=== PATIENT | male | born 1955 | race African-American/Black ===

== ENCOUNTER 2017-02-08 15:01 | Inpatient (IN) | payer OTHER ==
[2017-02-08 16:57] VITALS: BMI 27.7
--- NOTE | 2017-02-08 18:59 | HP ---
COWS - Scale Resting Pulse: 1= [place] 81-100 Sweatin= Chills/Flushing Restless Observation: 1= Difficult to Sit Still Pupil Size: 0= Normal to Room Light Bone or Joint Aches: 2= Severe Diffuse Aches Runny Nose/ Eye Tearin= Runny Nose/Eyes GI Upset > 30mins: 3= Vomiting/Diarrhea Tremor Observation: 2= Slight Tremor Visible Yawning Observation: 0= None Anxiety or Irritability: 2=Irritable/Anxious Goose Flesh Skin: 0=Smooth Skin COWS Score: 14 CIWA Score - CIWA Score Nausea/Vomitin-Mild Nausea/No Vomiting Muscle Tremors: 4-Moderate,w/Arms Extend Anxiety: 4-Mod. Anxious/Guarded Agitation: 4-Moderately Restless Paroxysmal Sweats: 1-Minimal Palms Moist Orientation: 1-Uncertain about Date Tacttile Disturbances: 0-None Auditory Disturbances: 0-None Visual Disturbances: 0-None Headache: 1-Very Mild CIWA-Ar Total Score: 16 Admission ROS BHS - HPI Chief Complaint: WITHDRAWAL SX Allergies/Adverse Reactions: Allergies Allergy/AdvReac Type Severity Reaction Status Date / Time No Known Allergies Allergy Verified 02/08/17 17:40 History of Present Illness: 51 YEARS OLD MALE WITH LONG HISTORY OF ALCOHOL, OPIATE, NICOTINE DEPENDENCE, HAS BOTH KNEES TRAUMA X 5 YEARS AGO, HYPERTENSION, AMBULATE WITH WALKER AND DEPRESSION IS ADMITTED TO DETOX Exam Limitations: No Limitations - Ebola screening Have you traveled outside of the country in the last 21 days: No Have you had contact with anyone from an Ebola affected area: No Have you been sick,other than usual withdrawal symptoms: No Do you have a fever: No - Review of Systems Constitutional: Changes in sleep, Weight Stable EENT: reports: Dental Problems (LOWER TEETH MISSING) Respiratory: reports: SOB with Exertion Cardiac: reports: No Symptoms Reported GI: reports: Nausea, Poor Fluid Intake, Abdominal cramping : reports: No Symptoms Reported Musculoskeletal: reports: Back Pain, Joint Pain (CHRONIC KNEES PAIN), Muscle Pain, Neck Pain Integumentary: reports: Change in Color (BOTH HANDS) Neuro: reports: Tremors Endocrine: reports: No Symptoms Reported Hematology: reports: No Symptoms Reported Psychiatric: reports: Judgement Intact, Depressed Other Systems: Reviewed and Negative Patient History - Patient Medical History Hx Anemia: No Hx Asthma: No Hx Chronic Obstructive Pulmonary Disease (COPD): No Hx Cancer: No Hx Cardiac Disorders: No Hx Congestive Heart Failure: No Hx Hypertension: Yes Hx Hypercholesterolemia: No Hx Pacemaker: No HX Cerebrovascular Accident: No Hx Seizures: No Hx Dementia: No Hx Diabetes: No Hx Gastrointestinal Disorders: No Hx Liver Disease: No Hx Genitourinary Disorders: No Hx Sexually Transmitted Disorders: No Hx Renal Disease (ESRD): No Hx Thyroid Disease: No Hx Human Immunodeficiency Virus (HIV): No Hx Hepatitis C: No Hx Depression: Yes Hx Suicide Attempt: Yes (AGE 46 OVERDOSE HANGSELF) Hx Bipolar Disorder: No Hx Schizophrenia: No - Patient Surgical History Past Surgical History: Yes Hx Neurologic Surgery: No Hx Cataract Extraction: No Hx Cardiac Surgery: No Hx Lung Surgery: No Hx Breast Surgery: No Hx Breast Biopsy: No Hx Abdominal Surgery: No Hx Appendectomy: No Hx Cholecystectomy: No Hx Genitourinary Surgery: No Hx Orthopedic Surgery: Yes (2013 BOTH KNEES ) Anesthesia Reaction: No - PPD History Previous Implant?: Yes Documented Results: Negative w/o proof Implanted On Prior [facility] Admission?: No PPD to be Administered?: Yes - Smoking Cessation Smoking history: Current every day smoker Have you smoked in the past 12 months: Yes Aproximately how many cigarettes per day: 5 Cigars Per Day: 0 Hx Chewing Tobacco Use: No Initiated information on smoking cessation: Yes 'Breaking Loose' booklet given: 02/08/17 - Substance & Tx. History Hx Alcohol Use: Yes Hx Substance Use: Yes Substance Use Type: Alcohol, Opiates Hx Substance Use Treatment: Yes (2014 ) - Substances Abused Heroin Route: Injection Frequency: Daily Amount used: 13 bags Age of first use: 25 Date of Last Use: 02/08/17 Alcohol Route: Oral Frequency: Daily Amount used: ISHA 1/2 PINT Age of first use: 11 Date of Last Use: 02/08/17 Family Disease History - Family Disease History Family Disease History: Heart Disease: Father (), Brother, Other: Father , Mother (/) Admission Physical Exam BHS - Vital Signs Vital Signs: Vital Signs - 24 hr 02/08/17 16:55 Temperature 98.1 F Pulse Rate 98 H Respiratory 18 Rate Blood Pressure 150/100 - Physical General Appearance: Yes: Appropriately Dressed, Mild Distress, Alcohol on Breath , Tremorous, Irritable, Sweating, Anxious HEENTM: Yes: Hearing grossly Normal, Normal ENT Inspection, Normocephalic, Normal Voice Respiratory: Yes: Chest Non-Tender, Lungs Clear, Normal Breath Sounds, No Respiratory Distress, No Accessory Muscle Use Neck: Yes: Supple, Trachea in good position Breast: Yes: Breasts Symetrical Cardiology: Yes: Regular Rhythm, S1, S2, Tachycardia Abdominal: Yes: Non Tender, Soft, Increased Bowel Sounds Genitourinary: Yes: Within Normal Limits Back: Yes: Normal Inspection Musculoskeletal: Yes: Gait Steady (WALKER), Back pain, Joint swelling (KNEES), Muscle Pain (BOTH KNEES) Extremities: Yes: Non-Tender, Tremors, Other (KNEES SCAR TISSUES) Neurological: Yes: Alert, Normal Response, Depressed Affect Integumentary: Yes: Warm Lymphatic: Yes: Within Normal Limits - Diagnostic (1) Alcohol dependence with uncomplicated withdrawal Current Visit: Yes Status: Acute (2) Opioid dependence with withdrawal Current Visit: Yes Status: Acute (3) Chronic pain of both knees Current Visit: Yes Status: Chronic (4) Hypertension Current Visit: Yes Status: Chronic Qualifiers: Hypertension type: essential hypertension Qualified Code(s): I10 - Essential (primary) hypertension (5) Hepatitis C carrier Current Visit: Yes Status: Chronic (6) Walker as ambulation aid Current Visit: Yes Status: Chronic (7) Depression (emotion) Current Visit: Yes Status: Suspected Qualifiers: Depression Type: dysthymia Qualified Code(s): F34.1 - Dysthymic disorder Cleared for Admission [facility] - Detox or Rehab [facility] Level of Care: Medically Managed Detox Regimen/Protocol: Methadone/Librium [facility] Breath Alcohol Content Breath Alcohol Content: 0.046 Urine Drug Screen - Results Drug Screen Negative: No Urine Drug Screen Results: OPI-Opiates, BZO-Benzodiazepines, MTD-Methadone
[2017-02-08] MEDS ORDERED: P-EPHED 60MG/TRIPROLIDI 2.5MG TABLET PO PRN (19:09)
[2017-02-08] MEDS ORDERED: MAGNESIUM HYDROX 2400MG/30ML ORAL SUSPENSION 30 ML CUP PO PRN (19:09)
[2017-02-08] MEDS ORDERED: LOPERAMIDE HCL 2 MG CAPSULE PO PRN (19:09)
[2017-02-08] MEDS ORDERED: METHADONE HCL 10 MG TABLET (FOR DETOX USE ONLY) PO ONE ×2 (19:09→23:00)
[2017-02-08] MEDS ORDERED: guaiFENesin/D-METHORPHAN HB 10 ML UNIT-DOSE CUPS PO PRN (19:09)
[2017-02-08] MEDS ORDERED: diphenhydrAMINE HCL 50 MG CAPSULE PO PRN (19:09)
[2017-02-08] MEDS ORDERED: MENTHOL/PHENOL 1 EACH UD MM PRN (19:09)
[2017-02-08] MEDS ORDERED: IBUPROFEN 400 MG TABLET (FP) PO PRN (19:09)
[2017-02-08] MEDS ORDERED: MAG HYDROX/AL HYDROX/SIMETH 30 ML UNIT-DOSE CUP PO PRN (19:09)
[2017-02-08] MEDS ORDERED: MAGNESIUM CITRATE 300 ML BOTTLE PO PRN (19:09)
[2017-02-08] MEDS ORDERED: NICOTINE POLACRILEX 2 MG GUM BUC PRN (19:09)
[2017-02-08] MEDS ORDERED: ACETAMINOPHEN 325 MG TABLET (FP) PO PRN (19:09)
[2017-02-08] MEDS ORDERED: chlordiazePOXIDE HCL 25 MG CAPSULE PO PRN (19:09)
[2017-02-08] MEDS ORDERED: COLLOIDAL OATMEAL 1 BAR EACH TP PRN (19:15)
[2017-02-08] MEDS: amLODIPine BESYLATE 5 MG TABLET (FP) PO SCH (19:50)
[2017-02-08] MEDS: chlordiazePOXIDE HCL 25 MG CAPSULE PO SCH (22:08)
[2017-02-08] MEDS: THIAMINE HCL 100 MG TABLET (FP) PO SCH (22:08)
[2017-02-08] MEDS: MINERAL OIL/PETROLAT/WATER TOPICAL CREAM 113 GM JAR TP SCH (22:11)
[2017-02-09 00:36] LABS: URINE APPEARANCE CLEAR; URINE BILIRUBIN NEGATIVE (NEGATIVE); URINE BLOOD NEGATIVE (NEGATIVE); URINE COLOR LTYELLOW; URINE GLUCOSE (UA) NEGATIVE (NEGATIVE); URINE KETONE NEGATIVE (NEGATIVE); URINE LEUK ESTERASE NEGATIVE (NEGATIVE); URINE NITRITE NEGATIVE (NEGATIVE); URINE PROTEIN NEGATIVE (NEGATIVE); URINE UROBILINOGEN NEGATIVE mg/dL (0.2-1.0)
[2017-02-09] MEDS: chlordiazePOXIDE HCL 25 MG CAPSULE PO SCH ×4 (05:39→22:07)
[2017-02-09 09:56] LABS: MCHC 32.9 g/dl (32.0-35.9); MEAN CELL VOLUME 100.4 fl (80-96); MEAN PLT VOLUME 9.6 fl (7.5-11.1); PLATELET COUNT 202 K/MM3 (134-434); WHITE BLOOD COUNT 3.2 K/mm3 (4.0-10.0)
[2017-02-09] MEDS ORDERED: METHADONE HCL 10 MG TABLET (FOR DETOX USE ONLY) PO SCH (10:00)
[2017-02-09] MEDS: amLODIPine BESYLATE 5 MG TABLET (FP) PO SCH (10:05)
[2017-02-09] MEDS: PRENATAL VITAMINS W/ FOLIC ACID TABLET (FP) PO SCH (10:05)
--- NOTE | 2017-02-09 10:05 | CONSULT ---
[facility] Psychiatric Consult - Data Date of interview: 02/09/17 Admission source: [facility] Identifying data: This is 61 years old AA divorce male resides in retirement, supported by [facility]. Substance Abuse History: Reports drinking since 11 years old 1/2 pint of solis daily,Heroin IV since 25 yo 13 bags daily. Medical History: HTN,Hep C,Chronic arthritis (ambulating with cane). Psychiatric History: Reports first contact with psychiatrist at the age of 30 when he was admitted to the hospital due to severe depression,suicidal thoughts.Patient was dx with Bipolkar disorder,placed in medications.he reports a few more psychiatric hospitalizations,not recently.Patient was on different meds including Depakote,Prozac,Risperidone,Seroquel.He stopped medications about 6 years ago anf reports feeling better with no psychotropic medications.Patient is not willing to restart meds at this time,reports feels fine,not depressed at present. Physical/Sexual Abuse/Trauma History: denies Mental Status Exam - Mental Status Exam Alert and Oriented to: Time, Place, Person Cognitive Function: Grossly Intact Patient Appearance: Unkempt Mood: Sad Affect: Appropriate, Mood Congruent Patient Behavior: Cooperative Speech Pattern: Clear Voice Loudness: Normal Thought Process: Goal Oriented Thought Disorder: Not Present Hallucinations: Denies Suicidal Ideation: Denies Homicidal Ideation: Denies Insight/Judgement: Fair Sleep: Fair Appetite: Fair Muscle strength/Tone: Normal Gait/Station: Normal Psychiatric Findings - Problem List ([place] 1, 2,3) (1) Alcohol dependence with uncomplicated withdrawal Current Visit: No Status: Acute (2) Opioid dependence with withdrawal Current Visit: Yes Status: Chronic (3) Chronic pain of both knees Current Visit: Yes Status: Chronic (4) Hepatitis C carrier Current Visit: Yes Status: Chronic (5) Hypertension Current Visit: Yes Status: Chronic Qualifiers: Hypertension type: essential hypertension Qualified Code(s): I10 - Essential (primary) hypertension (6) Walker as ambulation aid Current Visit: Yes Status: Chronic (7) Depression (emotion) Current Visit: Yes Status: Suspected Qualifiers: Depression Type: dysthymia Qualified Code(s): F34.1 - Dysthymic disorder - Initial Treatment Plan Initial Treatment Plan: Will monitor progress,consider psychotropics if needed.
[2017-02-09] MEDS: NICOTINE 14 MG/24 HOURS TOPICAL PATCH TD SCH (10:06)
[2017-02-09 10:15] LABS: ALBUMIN 3.3 g/dl (3.4-5.0); ALK PHOS 354 U/L (45-117); ANION GAP 6 (8-16); BILIRUBIN,TOTAL 0.8 mg/dL (0.2-1.0); CALCIUM 9.6 mg/dL (8.5-10.1); CO2 25 mmol/L (21-32); CREATININE 1.1 mg/dL (0.7-1.3); GLUCOSE,RANDOM 92 mg/dL (74-106); SGOT/AST 55 U/L (15-37); SGPT/ALT 44 U/L (12-78); TOT PROT 7.2 g/dl (6.4-8.2)
--- NOTE | 2017-02-09 11:14 | PN ---
[facility] CIWA - CIWA Score Nausea/Vomitin Muscle Tremors: 4-Moderate,w/Arms Extend Anxiety: 2 Agitation: 3 Paroxysmal Sweats: No Perspiration Orientation: 2-Disoriented Date<2 days Tacttile Disturbances: 0-None Auditory Disturbances: 2-Mild Harshness/Frighten Visual Disturbances: 0-None Headache: 0-None Present CIWA-Ar Total Score: 18 BHS COWS - Scale Resting Pulse: 0= [place] 80 or Below Sweatin= Chills/Flushing Restless Observation: 0= Sits Still Pupil Size: 0= Normal to Room Light Bone or Joint Aches: 2= Severe Diffuse Aches Runny Nose/ Eye Tearin= Runny Nose/Eyes GI Upset > 30mins: 2= Nausea/Diarrhea Tremor Observation of Outstretched Hands: 2= Slight Tremor Visible Yawning Observation: 1= 1-2x During Session Anxiety or Irritability: 2=Irritable/Anxious Goose Flesh Skin: 3=Piloerection COWS Score: 15 [facility] Progress Note (SOAP) Subjective: Vomiting, Stomach Cramping, H/A, Diarrhea, Tremors, Body Aches, Sweating. Objective: PT. A & O X 2 (DISORIENTED ABOUT DAY / DATE). NO ACUTE DISTRESS. PT. DENIES CHEST PAIN. 02/09/17 11:12 Vital Signs Temperature 97.6 F 02/09/17 06:27 Pulse Rate 59 L 02/09/17 07:37 Respiratory Rate 18 02/09/17 06:27 Blood Pressure 173/97 02/09/17 07:37 O2 Sat by Pulse Oximetry (%) Laboratory Tests 02/08/17 02/09/17 02/09/17 21:25 07:50 07:50 WBC 3.2 L RBC 3.41 L Hgb 11.3 L Hct 34.2 L MCV 100.4 H MCH 33.0 MCHC 32.9 RDW 13.0 Plt Count 202 MPV 9.6 Sodium 140 Potassium 4.3 Chloride 109 H Carbon Dioxide 25 Anion Gap 6 L BUN 35 H Creatinine 1.1 Creat Clearance w eGFR > 60 Random Glucose 92 Calcium 9.6 Total Bilirubin 0.8 AST 55 H ALT 44 Alkaline Phosphatase 354 H Total Protein 7.2 Albumin 3.3 L Urine Color Ltyellow Urine Appearance Clear Urine pH 5.0 Ur Specific [place] <= 1.005 Urine Protein Negative Urine Glucose (UA) Negative Urine Ketones Negative Urine Blood Negative Urine Nitrite Negative Urine Bilirubin Negative Urine Urobilinogen Negative LABS NOTED. RPR RESULT PENDING. 02/09/17 11:16 02/09/17 11:17 Assessment: 02/09/17 11:13 WITHDRAWAL SYMPTOMS. DEHYDRATION. 02/09/17 11:17 Plan: CONTINUED DETOX. REPEAT CMP ON 02/11/2017 FOR ABNORMAL ADMISSION VALUES. D/C MAGNESIUM-CONTAINING MEDS. INCREASE DAILY PO FLUID INTAKE.
[2017-02-09] MEDS: FERROUS SO4 325 MG TABLET (FP) PO SCH (18:41)
[2017-02-09] MEDS: THIAMINE HCL 100 MG TABLET (FP) PO SCH (22:07)
[2017-02-09] MEDS: MINERAL OIL/PETROLAT/WATER TOPICAL CREAM 113 GM JAR TP SCH (22:31)
[2017-02-10] MEDS: chlordiazePOXIDE HCL 25 MG CAPSULE PO SCH ×3 (05:59→17:47)
[2017-02-10] MEDS ORDERED: METHADONE HCL 5 MG TABLET (FOR DETOX USE ONLY) PO SCH (10:00)
[2017-02-10] MEDS: NICOTINE 14 MG/24 HOURS TOPICAL PATCH TD SCH (10:20)
[2017-02-10] MEDS: amLODIPine BESYLATE 5 MG TABLET (FP) PO SCH (10:20)
[2017-02-10] MEDS: PRENATAL VITAMINS W/ FOLIC ACID TABLET (FP) PO SCH (10:20)
[2017-02-10] MEDS: FERROUS SO4 325 MG TABLET (FP) PO SCH ×2 (10:20→17:46)
[2017-02-10] MEDS ORDERED: amLODIPine BESYLATE 5 MG TABLET (FP) PO ONE (15:12)
--- NOTE | 2017-02-10 15:14 | PN ---
[facility] CIWA - CIWA Score Nausea/Vomitin-No Nausea/No Vomiting Muscle Tremors: None Anxiety: 4-Mod. Anxious/Guarded Agitation: 3 Paroxysmal Sweats: 3 Orientation: 0-Oriented Tacttile Disturbances: 3-Moderate Itch/Numb/Burn Auditory Disturbances: 2-Mild Harshness/Frighten Visual Disturbances: 0-None Headache: 0-None Present CIWA-Ar Total Score: 15 BHS COWS - Scale Resting Pulse: 2= [place] 101-120 Sweatin= Chills/Flushing Restless Observation: 1= Difficult to Sit Still Pupil Size: 0= Normal to Room Light Bone or Joint Aches: 2= Severe Diffuse Aches Runny Nose/ Eye Tearin= Nasal Congestion GI Upset > 30mins: 1= Stomach Cramp Tremor Observation of Outstretched Hands: 0= None Yawning Observation: 1= 1-2x During Session Anxiety or Irritability: 2=Irritable/Anxious Goose Flesh Skin: 3=Piloerection COWS Score: 14 S Progress Note (SOAP) Subjective: Interrupted sleep, Body Aches, Sweating. Objective: PT. A & O X 3, OBSERVED AMBULATING ON UNIT WITH ASSISTANCE OF A WALKER. NO ACUTE DISTRESS. PT. DENIES CHEST PAIN. 02/10/17 15:10 Vital Signs Temperature 97.1 F L 02/10/17 10:33 Pulse Rate 107 H 02/10/17 10:33 Respiratory Rate 18 02/10/17 10:33 Blood Pressure 147/93 02/10/17 10:33 O2 Sat by Pulse Oximetry (%) Laboratory Tests 02/08/17 02/09/17 02/09/17 21:25 07:50 07:50 WBC 3.2 L RBC 3.41 L Hgb 11.3 L Hct 34.2 L MCV 100.4 H MCH 33.0 MCHC 32.9 RDW 13.0 Plt Count 202 MPV 9.6 Sodium 140 Potassium 4.3 Chloride 109 H Carbon Dioxide 25 Anion Gap 6 L BUN 35 H Creatinine 1.1 Creat Clearance w eGFR > 60 Random Glucose 92 Calcium 9.6 Total Bilirubin 0.8 AST 55 H ALT 44 Alkaline Phosphatase 354 H Total Protein 7.2 Albumin 3.3 L Urine Color Ltyellow Urine Appearance Clear Urine pH 5.0 Ur Specific [place] <= 1.005 Urine Protein Negative Urine Glucose (UA) Negative Urine Ketones Negative Urine Blood Negative Urine Nitrite Negative Urine Bilirubin Negative Urine Urobilinogen Negative RPR Titer 02/09/17 07:50 WBC RBC Hgb Hct MCV MCH MCHC RDW Plt Count MPV Sodium Potassium Chloride Carbon Dioxide Anion Gap BUN Creatinine Creat Clearance w eGFR Random Glucose Calcium Total Bilirubin AST ALT Alkaline Phosphatase Total Protein Albumin Urine Color Urine Appearance Urine pH Ur Specific [place] Urine Protein Urine Glucose (UA) Urine Ketones Urine Blood Urine Nitrite Urine Bilirubin Urine Urobilinogen RPR Titer Nonreactive LABS NOTED. Assessment: 02/10/17 15:14 WITHDRAWAL SYMPTOMS. HYPERTENSION. Plan: CONTINUE DETOX. AMLODIPINE, 5 MG PO X 1 NOW. INCREASE AMLODIPINE DOSE TO 10 MG PO DAILY STARTING TOMORROW (02/11/2017). INCREASE DAILY PO FLUID INTAKE.
[2017-02-10] MEDS ORDERED: IBUPROFEN 400 MG TABLET (FP) PO PRN (18:54)
[2017-02-10] MEDS ORDERED: PT OWN MED DRAWER 7, Y5N ONE (21:11)
[2017-02-10] MEDS: chlordiazePOXIDE 5 MG CAPSULE PO SCH (23:03)
[2017-02-10] MEDS: MINERAL OIL/PETROLAT/WATER TOPICAL CREAM 113 GM JAR TP SCH (23:03)
[2017-02-10] MEDS: THIAMINE HCL 100 MG TABLET (FP) PO SCH (23:04)
[2017-02-11] MEDS: chlordiazePOXIDE 5 MG CAPSULE PO SCH (05:45)
[2017-02-11 07:13] VITALS: BP 155/98; PULSE 90; TEMP 97.1
[2017-02-11] MEDS ORDERED: amLODIPine BESYLATE 10 MG TABLET (FP) PO SCH (10:00)
--- NOTE | 2017-02-11 14:31 | DS ---
[facility] Detox Discharge Summary Admission Date: 02/08/17 Discharge Date: 02/11/17 - History Present History: Alcohol Dependence, Opioid Dependence Additional Comments: Noted with azotemia: encouraged to drink lots of water Patient instructed to follow up with his PCP within 1 week for all medical problems/concerns Pertinent Past History: HTN Anemia - Physical Exam Results Vital Signs: Vital Signs Temperature 97.1 F L 02/11/17 06:00 Pulse Rate 90 02/11/17 06:00 Respiratory Rate 18 02/11/17 06:00 Blood Pressure 155/98 02/11/17 06:00 O2 Sat by Pulse Oximetry (%) Pertinent Admission Physical Exam Findings: Withdrawal symptoms Laboratory Tests 02/08/17 02/09/17 02/09/17 21:25 07:50 07:50 WBC 3.2 L RBC 3.41 L Hgb 11.3 L Hct 34.2 L MCV 100.4 H MCH 33.0 MCHC 32.9 RDW 13.0 Plt Count 202 MPV 9.6 Sodium 140 Potassium 4.3 Chloride 109 H Carbon Dioxide 25 Anion Gap 6 L BUN 35 H Creatinine 1.1 Creat Clearance w eGFR > 60 Random Glucose 92 Calcium 9.6 Total Bilirubin 0.8 AST 55 H ALT 44 Alkaline Phosphatase 354 H Total Protein 7.2 Albumin 3.3 L Urine Color Ltyellow Urine Appearance Clear Urine pH 5.0 Ur Specific [place] <= 1.005 Urine Protein Negative Urine Glucose (UA) Negative Urine Ketones Negative Urine Blood Negative Urine Nitrite Negative Urine Bilirubin Negative Urine Urobilinogen Negative RPR Titer 02/09/17 07:50 WBC RBC Hgb Hct MCV MCH MCHC RDW Plt Count MPV Sodium Potassium Chloride Carbon Dioxide Anion Gap BUN Creatinine Creat Clearance w eGFR Random Glucose Calcium Total Bilirubin AST ALT Alkaline Phosphatase Total Protein Albumin Urine Color Urine Appearance Urine pH Ur Specific [place] Urine Protein Urine Glucose (UA) Urine Ketones Urine Blood Urine Nitrite Urine Bilirubin Urine Urobilinogen RPR Titer Nonreactive Labs noted: BUN 35 - Medication Discharge Medications: Ambulatory Orders Unobtainable [Unobtainable] 02/08/17 - Diagnosis (1) Hypertension Status: Chronic Qualifiers: Hypertension type: essential hypertension Qualified Code(s): I10 - Essential (primary) hypertension (2) Opioid dependence with withdrawal Status: Acute (3) Depression (emotion) Status: Chronic Qualifiers: Depression Type: dysthymia Qualified Code(s): F34.1 - Dysthymic disorder (4) Alcohol dependence with uncomplicated withdrawal Status: Acute (5) Nicotine dependence Status: Chronic (6) Anemia Status: Chronic (7) Azotemia Status: Acute - AMA Did Patient Leave Against Medical Advice: No (Administratively discharged due to aggressiveness and increased agitation. )
[2017-02-11] MEDS ORDERED: chlordiazePOXIDE HCL 10 MG CAPSULE PO SCH (23:00)
[2017-02-12] MEDS ORDERED: METHADONE HCL 10 MG TABLET (FOR DETOX USE ONLY) PO SCH (10:00)
--- NOTE | 2017-02-12 17:04 | EKG ---
Test Reason : Blood Pressure : / mmHG Vent. Rate : 073 BPM Atrial Rate : 073 BPM P-R Int : 160 ms QRS Dur : 084 ms QT Int : 416 ms P-R-T Axes : 057 031 025 degrees QTc Int : 458 ms NORMAL SINUS RHYTHM VOLTAGE CRITERIA FOR LEFT VENTRICULAR HYPERTROPHY ABNORMAL ECG NO PREVIOUS ECGS AVAILABLE Confirmed by ALISSA ROBERTS MD ([id number]) on 02/12/2017 5:04:28 PM Referred By: Confirmed By:ALISSA ROBERTS MD
[2017-02-13] MEDS ORDERED: METHADONE HCL 5 MG TABLET (FOR DETOX USE ONLY) PO SCH (06:00)
== END 2017-02-11 08:43 | disposition left against medical advice (07) | DRG 894 ==
LOC: YASAS 15:01 → Y3N 18:45
PROVIDERS: ADMIT Internal Medicine; ATTEND Internal Medicine
PROC: HZ2ZZZZ Detoxification Services for Substance Abuse Treatment (ICD-10-PCS; principal; 2017-02-08)
DX: F11.23 Opioid dependence with withdrawal (principal); F10.230 Alcohol dependence with withdrawal, uncomplicated; F17.210 Nicotine dependence, cigarettes, uncomplicated; F34.1 Dysthymic disorder; B18.2 Chronic viral hepatitis C; I10 Essential (primary) hypertension; R79.89 Other specified abnormal findings of blood chemistry; M25.561 Pain in right knee; M25.562 Pain in left knee; R26.89 Other abnormalities of gait and mobility; Z99.89 Dependence on other enabling machines and devices
CPT/HCPCS: 36415; 80053; 81003; 85027; 86593; 93005; 93010

== ENCOUNTER 2024-05-27 13:22 | Inpatient (IN) | payer OTHER ==
[2024-05-27 14:57] VITALS: BMI 29.5
[2024-05-27] MEDS ORDERED: guaiFENesin 600 MG TABLET.ER (FP) PO PRN (16:25)
[2024-05-27] MEDS ORDERED: POLYETHYLENE GLYCOL (HEALTHYLAX) 3350 17 GM PACKET PO PRN (16:25)
[2024-05-27] MEDS ORDERED: BENZOCAINE/MENTHOL (CHLORASEPTIC ) LOZENGE MM PRN (16:25)
[2024-05-27] MEDS ORDERED: hydrOXYzine PAMOATE 25 MG CAPSULE (FP) PO PRN (16:25)
[2024-05-27] MEDS ORDERED: MAG HYDROX/AL HYDROX/SIMETH 30 ML UNIT-DOSE CUP PO PRN (16:25)
[2024-05-27] MEDS ORDERED: BENZONATATE 200 MG CAPSULE PO PRN (16:25)
[2024-05-27] MEDS ORDERED: ONDANSETRON *ODT* 4 MG TABLET SL PRN (16:25)
[2024-05-27] MEDS ORDERED: BISMUTH SUBSALICYLATE 524 MG/30 ML PO PRN (16:25)
[2024-05-27] MEDS ORDERED: NICOTINE POLACRILEX 2 MG GUM BUC PRN (16:25)
[2024-05-27] MEDS ORDERED: NALOXONE (NARCAN) HCL 4 MG/0.1 ML SPRAY NS PRN (16:25)
[2024-05-27] MEDS ORDERED: DICYCLOMINE HCL 10 MG CAPSULE PO PRN (16:25)
[2024-05-27] MEDS ORDERED: METHOCARBAMOL 500 MG TABLET PO PRN (16:25)
[2024-05-27] MEDS ORDERED: IBUPROFEN 400 MG TABLET (FP) PO PRN (16:25)
[2024-05-27] MEDS ORDERED: LOPERAMIDE HCL 2 MG CAPSULE PO PRN (16:25)
[2024-05-27] MEDS: IBUPROFEN 600 MG TABLET (FP) PO PRN (19:10)
[2024-05-27] MEDS: cloNIDine HCL 0.1 MG TABLET PO ONE (19:50)
[2024-05-27] MEDS: MELATONIN 5 MG TABLETS PO SCH (22:56)
[2024-05-27] MEDS: THIAMINE 100 MG TABLET PO SCH (22:56)
[2024-05-28] MEDS: NICOTINE 14 MG/24 HOURS TOPICAL PATCH TD SCH (10:02)
[2024-05-28] MEDS: PRENATAL VITAMINS W/ FOLIC ACID TABLET (FP) PO SCH (10:02)
[2024-05-28 10:37] LABS: HEMATOCRIT 39.6 % (35.4-49); HEMOGLOBIN 12.6 GM/dL (11.7-16.9); MCH 31.6 pg (25.7-33.7); MCHC 31.7 g/dl (32.0-35.9); MEAN CELL VOLUME 99.6 fl (80-96); MEAN PLT VOLUME 9.3 fl (7.5-11.1); PLATELET COUNT 272 10^3/uL (134-434); RBC 3.97 M/mm3 (4.00-5.60); RDW 13.7 % (11.9-15.9); WHITE BLOOD COUNT 4.2 K/mm3 (4.0-10.0)
[2024-05-28 10:41] LABS: CHLORIDE 113 mmol/L (98-107); POTASSIUM 4.6 mmol/L (3.5-5.1); SODIUM 141 mmol/L (136-145)
[2024-05-28 10:46] LABS: CALCIUM 9.7 mg/dL (8.5-10.1)
[2024-05-28 10:47] LABS: ALBUMIN 3.4 g/dl (3.4-5.0); ANION GAP 7 mmol/L (4-13); BLOOD UREA NITROGEN 39.7 mg/dL (7-18); CO2 21 mmol/L (21-32); GLUCOSE,RANDOM 124 mg/dL (74-106)
[2024-05-28 10:50] LABS: CREATININE 2.4 mg/dL (0.55-1.3); SGOT/AST 11 U/L (15-37); SGPT/ALT 12 U/L (13-61)
[2024-05-28 10:51] LABS: BILIRUBIN,TOTAL 0.6 mg/dL (0.2-1); TOT PROT 7.4 g/dl (6.4-8.2)
[2024-05-28 10:52] LABS: ALK PHOS 109 U/L (45-117)
[2024-05-28] MEDS ORDERED: methaDONE HCL 10 MG TABLET (FOR DETOX USE ONLY) PO PRN (11:08)
[2024-05-28] MEDS: methaDONE HCL 10 MG TABLET (FOR DETOX USE ONLY) PO ONE (11:24)
[2024-05-28] MEDS: ASPIRIN 81 MG CHEWABLE TABLETS PO SCH (12:41)
[2024-05-28] MEDS: CLOPIDOGREL BISULFATE 75 MG TABLET (FP) PO SCH (12:41)
[2024-05-28] MEDS: ALLOPURINOL 100 MG TABLET (FP) PO SCH ×2 (12:50→13:21)
[2024-05-28] MEDS: COLCHICINE 0.6 MG TAB PO SCH (14:28)
[2024-05-28] MEDS: ACETAMINOPHEN 325 MG TABLET (FP) PO PRN (20:40)
[2024-05-28] MEDS: cloNIDine HCL 0.1 MG TABLET PO PRN (20:40)
[2024-05-28] MEDS: ATORVASTATIN CA 20 MG TABLET (FP) PO SCH (22:46)
[2024-05-29] MEDS ORDERED: NIFEdipine E.R. 90 MG TABLET PO SCH (10:00)
[2024-05-29] MEDS: NIFEdipine E.R. 90 MG TABLET PO SCH (10:25)
[2024-05-29] MEDS: ACETAMINOPHEN 325 MG TABLET (FP) PO PRN (15:00)
[2024-05-29] MEDS: hydrALAZINE HCL 50 MG TABLET (FP) PO SCH (15:01)
[2024-05-29] MEDS: PANTOPRAZOLE 40 MG TABLET PO SCH (15:01)
[2024-05-29] MEDS: MAGNESIUM HYDROX 2400MG/30ML ORAL SUSPENSION 30 ML CUP PO PRN (19:48)
[2024-05-30] MEDS: EZETIMIBE 10 MG TABLET (FP) PO SCH (09:40)
[2024-05-30] MEDS: methaDONE HCL 10 MG TABLET (FOR DETOX USE ONLY) PO ONE (09:41)
[2024-05-30] MEDS: QUEtiapine FUMARATE 50 MG TABLET PO SCH (21:13)
[2024-05-31] MEDS: BISACODYL 5 MG TABLET.DR (FP) PO ONE ×2 (16:00→17:23)
[2024-05-31] MEDS: METOPROLOL TARTRATE 50 MG TABLET (FP) PO ONE (18:51)
[2024-06-01] MEDS: methaDONE HCL 10 MG TABLET (FOR DETOX USE ONLY) PO ONE (10:01)
[2024-06-02 06:53] VITALS: RESP 18
[2024-06-02 09:56] VITALS: BP 148/94; PULSE 96; TEMP 97.8
[2024-06-02] MEDS: NALOXONE (NYS OPIOID OVERDOSE PROGRAM) 4 MG/0.1 ML SPRAY NS SCH (10:05)
== END 2024-06-02 10:15 | disposition home or self-care (01) | DRG 897 ==
LOC: YASAS 13:22 → Y6N 17:12
PROVIDERS: ADMIT Allergy & Immunology; ATTEND Family Medicine Addiction Medicine
PROC: HZ2ZZZZ Detoxification Services for Substance Abuse Treatment (ICD-10-PCS; principal; 2024-05-27)
DX: F11.23 Opioid dependence with withdrawal (principal); F19.282 Other psychoactive substance dependence with psychoactive substance-induced sleep disorder; B18.1 Chronic viral hepatitis B without delta-agent; F17.210 Nicotine dependence, cigarettes, uncomplicated; F31.9 Bipolar disorder, unspecified; F19.24 Other psychoactive substance dependence with psychoactive substance-induced mood disorder; E78.2 Mixed hyperlipidemia; I12.9 Hypertensive chronic kidney disease with stage 1 through stage 4 chronic kidney disease, or unspecified chronic kidney disease; N18.9 Chronic kidney disease, unspecified; I25.2 Old myocardial infarction; K59.03 Drug induced constipation; M20.42 Other hammer toe(s) (acquired), left foot; M10.9 Gout, unspecified; M06.9 Rheumatoid arthritis, unspecified; M19.90 Unspecified osteoarthritis, unspecified site; R79.89 Other specified abnormal findings of blood chemistry; Z99.89 Dependence on other enabling machines and devices
CPT/HCPCS: 36415; 80053; 80305; 80307; 82540; 84520; 85027; 86780; 93005; 93010

== ENCOUNTER 2024-11-04 14:53 | Inpatient (IN) | payer OTHER ==
[2024-11-04 15:34] VITALS: BMI 27.5
[2024-11-04] MEDS ORDERED: guaiFENesin 600 MG TABLET.ER (FP) PO PRN (15:53)
[2024-11-04] MEDS ORDERED: NALOXONE (NARCAN) HCL 4 MG/0.1 ML SPRAY NS PRN (15:53)
[2024-11-04] MEDS ORDERED: LOPERAMIDE HCL 2 MG CAPSULE PO PRN (15:53)
[2024-11-04] MEDS ORDERED: BENZOCAINE/MENTHOL (CHLORASEPTIC ) LOZENGE MM PRN (15:53)
[2024-11-04] MEDS ORDERED: NICOTINE POLACRILEX 2 MG GUM BUC PRN (15:53)
[2024-11-04] MEDS ORDERED: MAG HYDROX/AL HYDROX/SIMETH 30 ML UNIT-DOSE CUP PO PRN (15:53)
[2024-11-04] MEDS ORDERED: POLYETHYLENE GLYCOL (HEALTHYLAX) 3350 17 GM PACKET PO PRN (15:53)
[2024-11-04] MEDS ORDERED: MAGNESIUM HYDROX 2400MG/30ML ORAL SUSPENSION 30 ML CUP PO PRN (15:53)
[2024-11-04] MEDS ORDERED: ACETAMINOPHEN 325 MG TABLET (FP) PO PRN (15:53)
[2024-11-04] MEDS ORDERED: BENZONATATE 200 MG CAPSULE PO PRN (15:53)
[2024-11-04] MEDS ORDERED: NICOTINE POLACRILEX 2 MG LOZENGE BC PRN (15:53)
[2024-11-04] MEDS: methaDONE HCL 10 MG TABLET (FOR DETOX USE ONLY) PO ONE (18:23)
[2024-11-04] MEDS: THIAMINE 100 MG TABLET PO SCH (22:32)
[2024-11-04] MEDS: hydrALAZINE HCL 25 MG TABLET (FP) PO ONE (22:32)
[2024-11-04] MEDS: ATORVASTATIN CA 20 MG TABLET (FP) PO SCH (22:32)
[2024-11-04] MEDS: MELATONIN 5 MG TABLETS PO SCH (22:32)
[2024-11-05] MEDS: PRENATAL VITAMINS W/ FOLIC ACID TABLET (FP) PO SCH (09:43)
[2024-11-05] MEDS: CLOPIDOGREL BISULFATE 75 MG TABLET (FP) PO SCH (09:43)
[2024-11-05] MEDS: amLODIPine BESYLATE 2.5 MG TABLET (FP) PO SCH (09:43)
[2024-11-05] MEDS: PANTOPRAZOLE 40 MG TABLET PO SCH (09:43)
[2024-11-05] MEDS: ONDANSETRON *ODT* 4 MG TABLET SL PRN (09:47)
[2024-11-05 11:23] LABS: HEMOGLOBIN 11.8 g/dL (13.7-17.5); MCHC 31.1 g/dl (32.3-36.5); MEAN PLT VOLUME 11.5 fl (9.4-12.4); PLATELET COUNT 231 x10^3/uL (163-337); RDW 12.5 % (12.2-16.4)
[2024-11-05 11:31] LABS: POTASSIUM 5.1 mmol/L (3.5-5.1)
[2024-11-05 11:46] LABS: BLOOD UREA NITROGEN 57.7 mg/dL (7-18); CALCIUM 9.4 mg/dL (8.5-10.1)
[2024-11-05 11:49] LABS: URIC ACID 6.7 mg/dL (2.6-7.2)
[2024-11-05 11:50] LABS: CREATININE 2.4 mg/dL (0.55-1.3)
[2024-11-05 11:51] LABS: BILIRUBIN,TOTAL 0.6 mg/dL (0.2-1)
[2024-11-05 11:52] LABS: TOT PROT 6.4 g/dl (6.4-8.2)
[2024-11-05] MEDS: hydrALAZINE HCL 25 MG TABLET (FP) PO SCH (17:24)
[2024-11-06] MEDS: amLODIPine BESYLATE 10 MG TABLET (FP) PO SCH (09:12)
[2024-11-06] MEDS: methaDONE HCL 10 MG TABLET (FOR DETOX USE ONLY) PO ONE (09:44)
[2024-11-06 09:47] VITALS: RESP 18; TEMP 98
[2024-11-06 11:24] VITALS: BP 165/96; PULSE 91
[2024-11-06] MEDS ORDERED: QUEtiapine FUMARATE 50 MG TABLET PO SCH (22:00)
[2024-11-08] MEDS ORDERED: methaDONE HCL 10 MG TABLET (FOR DETOX USE ONLY) PO ONE (10:00)
== END 2024-11-06 12:52 | disposition left against medical advice (07) | DRG 894 ==
LOC: YASAS 14:53 → Y3N 17:15
PROVIDERS: ADMIT Family Medicine; ATTEND Family Medicine
PROC: HZ2ZZZZ Detoxification Services for Substance Abuse Treatment (ICD-10-PCS; principal; 2024-11-04)
DX: F11.23 Opioid dependence with withdrawal (principal); F17.210 Nicotine dependence, cigarettes, uncomplicated; F19.24 Other psychoactive substance dependence with psychoactive substance-induced mood disorder; F20.9 Schizophrenia, unspecified; F43.10 Post-traumatic stress disorder, unspecified; F41.9 Anxiety disorder, unspecified; F32.A Depression, unspecified; E78.5 Hyperlipidemia, unspecified; I10 Essential (primary) hypertension; K21.9 Gastro-esophageal reflux disease without esophagitis; M10.9 Gout, unspecified; Z86.19 Personal history of other infectious and parasitic diseases; Z86.73 Personal history of transient ischemic attack (TIA), and cerebral infarction without residual deficits
CPT/HCPCS: 36415; 80053; 80305; 80307; 84550; 85027; 86780; 93005; 93010; Q0162